=== PATIENT | male | born 1995 | race Asian ===

== ENCOUNTER 2024-04-25 12:32 | Emergency (ER) | payer OTHER ==
[~2024-04-25] VITALS: Ht 177.8 cm; Wt 91.0 kg
[2024-04-25 12:44] VITALS: BP 114/87; PULSE 88; RESP 18; TEMP 98; O2SAT 99
[2024-04-25] MEDS: KETOROLAC 30MG/ML VIAL IM STA (14:27)
== END 2024-04-25 15:02 | disposition home or self-care (01) ==
LOC: ER 12:32
DX: S92.901A Unspecified fracture of right foot, initial encounter for closed fracture (principal); W10.9XXA Fall (on) (from) unspecified stairs and steps, initial encounter; Y93.89 Activity, other specified; Y92.89 Other specified places as the place of occurrence of the external cause; Y99.8 Other external cause status
CPT/HCPCS: 99284; 73610; 73630; 96372; J1885